=== PATIENT | female | born 1975 | race Hispanic/Latino ===

== ENCOUNTER 2020-05-31 00:04 | Inpatient (IN) | payer MEDICAID, OTHER ==
[2020-05-31 00:53] LABS: ABG BASE EXCESS -8.7 mmol/L (-2.0-3.0); ABG HCO3 12.3 mmol/L (21.0-28.0); ABG OXYGEN SATURATION 94.2 % (95.0-99.0); ABG PCO2 18 mmHg (32-45)
[2020-05-31 01:20] LABS: BASOPHILS % (AUTO) 0.2 % (0.0-5.0); EOSINOPHILS % (AUTO) 0.3 % (0.0-8.0); HEMATOCRIT 37.1 % (36-48); LYMPHOCYTES % (AUTO) 20.9 % (21.0-51.0); MEAN CORPUSCULAR HEMOGLOBIN 31.5 pg (27.0-33.0); MEAN CORPUSCULAR HGB CONC 33.2 g/dL (32.0-36.0); MEAN CORPUSCULAR VOLUME 95.1 fL (79-99); MONOCYTES % (AUTO) 11.2 % (3.0-13.0); NEUTROPHILS % (AUTO) 66.5 % (40.0-77.0); PLATELET COUNT (AUTO) 82 K/uL (130-400); RED CELL DISTRIBUTION WIDTH 13.5 % (11.0-15.5); WHITE BLOOD COUNT (AUTO) 5.9 K/uL (4.8-10.8)
[2020-05-31 01:33] LABS: INR 0.99 (0.85-1.15); PARTIAL THROMBOPLASTIN TIME 28.7 SEC (26.3-35.5); PROTHROMBIN TIME 10.7 SEC (9.6-11.6)
[2020-05-31 01:37] LABS: CREATININE 0.7 mg/dL (0.5-1.5); POTASSIUM 3.8 mmol/L (3.5-5.1)
[2020-05-31 01:41] LABS: ALBUMIN 2.6 g/dL (3.5-5.0); BILIRUBIN,TOTAL 0.9 mg/dL (0.2-1.0); TOTAL PROTEIN, SERUM 6.5 g/dL (6.0-8.3)
[2020-05-31] MEDS ORDERED: CEFTRIAXONE SODIUM 1 GM ONE (01:59)
[2020-05-31] MEDS: AZITHROMYCIN 500MG+NS 250ML 250 ML IV SCH (03:00)
[2020-05-31] MEDS: METHYLPREDNISOLONE SOD SUCC 40MG/ML 1ML IVP SCH ×3 (03:00→19:00)
[2020-05-31] MEDS: SODIUM CHLORIDE 0.9% 1000ML 1,000 ML IV SCH ×2 (03:04→16:24)
[2020-05-31] MEDS ORDERED: AZITHROMYCIN 500MG+NS 250ML 250 ML IV ONE (03:07)
[2020-05-31] MEDS ORDERED: ONDANSETRON HCL 4 MG/2 ML VIAL IV PRN (03:15)
[2020-05-31] MEDS ORDERED: NITROGLYCERIN 0.4 MG SL TAB SL PRN (03:15)
[2020-05-31] MEDS ORDERED: ALBUTEROL INHALER 90MCG/INH IH PRN (03:15)
[2020-05-31] MEDS ORDERED: DIPHENHYDRAMINE HCL 25 MG CAPSULE PO PRN (03:15)
[2020-05-31] MEDS ORDERED: ACETAMINOPHEN 325 MG TAB PO PRN ×2 (03:15)
[2020-05-31] MEDS ORDERED: SODIUM CHLORIDE 0.9% 1000ML 1,000 ML IV ONE (05:37)
[2020-05-31] MEDS ORDERED: METHYLPREDNISOLONE SOD SUCC 125MG/2ML VIAL ONE (05:38)
[2020-05-31 06:23] LABS: FIBRINOGEN 617 mg/dL (180-350)
[2020-05-31 06:38] LABS: CREATINE KINASE, TOTAL 42 U/L (21-232); LACTATE DEHYDROGENASE 460 U/L (81-234); MYOGLOBIN 36 ng/mL (10-92); TRIGLYCERIDES 87 mg/dL (30-200); TROPONIN I < 0.04 ng/mL (0.00-0.06)
[2020-05-31] MEDS: PANTOPRAZOLE SODIUM 40 MG TABLET.DR PO SCH (09:00)
[2020-05-31] MEDS ORDERED: ENOXAPARIN SODIUM 30 MG/0.3 ML SQ SCH (09:00)
[2020-05-31] MEDS ORDERED: ENOXAPARIN SODIUM 30 MG/0.3 ML SQ ONE (11:07)
[2020-05-31 12:47] LABS: APPEARANCE,URINE CLEAR (CLEAR)
[2020-05-31 12:48] LABS: COLOR,URINE YELLOW (YELLOW)
[2020-05-31 12:49] LABS: BILIRUBIN,URINE SMALL (NEGATIVE); GLUCOSE, URINE (UA) NEGATIVE (NEGATIVE); KETONES,URINE NEGATIVE (NEGATIVE); LEUKOCYTE ESTERASE ,URINE LARGE (NEGATIVE); NITRATE,URINE NEGATIVE (NEGATIVE); OCCULT BLOOD,URINE NEGATIVE (NEGATIVE); PROTEIN,URINE 30 mg/dL (NEGATIVE)
[2020-05-31 12:55] LABS: BACTERIA,URINE Moderate /HPF (None Seen); RBC,URINE 0-1 /HPF (0-1); SQUAMOUS EPITHELIAL CELL,UR Many /HPF (0-2)
[2020-05-31] MEDS ORDERED: METHYLPREDNISOLONE SOD SUCC 40MG/ML 1ML ONE ×2 (13:13→20:26)
--- NOTE | 2020-05-31 16:09 | NUR ---
CAYETANO TO REACH PATIENT BY PHONE, CALL TO FAMILY- BJ GOMEZ SPOUSE SONIA DOOLEY PATIENT IS ACTIVE, INDEPENDENT, EMPLOYED, HAS TWO MINOR CHILD AND EXTENDED FMAILY IN THE HOME. ALL HAVE SYMPTOMS AND COUGH BUT NON BAD AT THE PATIENT- UNINSURED. DRIVES, DCP HOME AT DISCHARGE., BJ TO SUPPLY TRANSPORT. STATES PATIENT NOT ANSWERING HER PHONE- MAYBE OUR OF CHARGE? ADIVSED HIM WHEN THUAN GOES UP TO FLOOR/ROOM, WILL HAVE A PHONE IN THE ROOM Addendum: 05/31/20 at 1612 by AMILCAR STEWART RN CM Amended: Links added.
[2020-06-01] MEDS ORDERED: CEFTRIAXONE SODIUM 1 GM ONE (02:27)
[2020-06-01] MEDS ORDERED: SODIUM CHLORIDE 0.9% 500ML 500 ML IV ONE (02:31)
[2020-06-01] MEDS: METHYLPREDNISOLONE SOD SUCC 40MG/ML 1ML IVP SCH ×3 (03:00→19:00)
[2020-06-01] MEDS: AZITHROMYCIN 500MG+NS 250ML 250 ML IV SCH (03:00)
[2020-06-01] MEDS ORDERED: METHYLPREDNISOLONE SOD SUCC 40MG/ML 1ML ONE ×2 (04:25→20:33)
[2020-06-01 04:58] LABS: HEMATOCRIT 37.5 % (36-48); MEAN CORPUSCULAR HEMOGLOBIN 32.1 pg (27.0-33.0); MEAN CORPUSCULAR HGB CONC 33.3 g/dL (32.0-36.0); MEAN CORPUSCULAR VOLUME 96.2 fL (79-99); PLATELET COUNT (AUTO) 79 K/uL (130-400); RED CELL DISTRIBUTION WIDTH 13.2 % (11.0-15.5); WHITE BLOOD COUNT (AUTO) 7.6 K/uL (4.8-10.8)
[2020-06-01 05:20] LABS: ALBUMIN 2.4 g/dL (3.5-5.0); BILIRUBIN,TOTAL 0.7 mg/dL (0.2-1.0); CREATININE 0.7 mg/dL (0.5-1.5); MAGNESIUM 2.1 mg/dL (1.80-2.40); POTASSIUM 4.1 mmol/L (3.5-5.1); TOTAL PROTEIN, SERUM 6.8 g/dL (6.0-8.3)
[2020-06-01 05:34] LABS: CRP QUANTITATIVE 254.5 mg/L (0.00-9.0)
[2020-06-01 05:35] LABS: LYMPHOCYTES % (MANUAL) 18 % (22-44); MAN.DIFF COMMENT-IMPRESSION MANUAL DIFFERENTIAL; MONOCYTES % (MANUAL) 5 % (2-9); PLATELET MORPHOLOGY COMMENT DECREASED; REACTIVE LYMPHOCYTES 5 % (0-0); SEGMENTED NEUTROPHILS % 72 % (40-70)
[2020-06-01] MEDS: SODIUM CHLORIDE 0.9% 1000ML 1,000 ML IV SCH ×2 (05:44→19:04)
[2020-06-01] MEDS: CEFTRIAXONE SODIUM 1 GM IVP SCH (09:00)
[2020-06-01] MEDS: PANTOPRAZOLE SODIUM 40 MG TABLET.DR PO SCH (09:00)
[2020-06-01] MEDS ORDERED: ACETAMINOPHEN 325 MG TAB ONE (10:51)
[2020-06-01] MEDS ORDERED: AZITHROMYCIN 500MG+NS 250ML 250 ML IV ONE (10:51)
[2020-06-02] MEDS: AZITHROMYCIN 500MG+NS 250ML 250 ML IV SCH (03:00)
[2020-06-02] MEDS ORDERED: CEFTRIAXONE SODIUM 1 GM ONE (06:19)
[2020-06-02] MEDS ORDERED: METHYLPREDNISOLONE SOD SUCC 40MG/ML 1ML ONE ×2 (06:19→10:08)
[2020-06-02 06:40] LABS: BASOPHILS % (AUTO) 0.1 % (0.0-5.0); EOSINOPHILS % (AUTO) 1.5 % (0.0-8.0); HEMATOCRIT 35.2 % (36-48); LYMPHOCYTES % (AUTO) 17.6 % (21.0-51.0); MEAN CORPUSCULAR HEMOGLOBIN 32.2 pg (27.0-33.0); MEAN CORPUSCULAR HGB CONC 33.5 g/dL (32.0-36.0); MEAN CORPUSCULAR VOLUME 95.9 fL (79-99); MONOCYTES % (AUTO) 6.5 % (3.0-13.0); NEUTROPHILS % (AUTO) 73.8 % (40.0-77.0); PLATELET COUNT (AUTO) 109 K/uL (130-400); RED BLOOD CELL COUNT(AUTO) 3.67 MIL/uL (4.00-5.50); RED CELL DISTRIBUTION WIDTH 13.3 % (11.0-15.5); WHITE BLOOD COUNT (AUTO) 8.1 K/uL (4.8-10.8)
[2020-06-02 07:00] LABS: CREATININE 0.5 mg/dL (0.5-1.5); CRP QUANTITATIVE 96.9 mg/L (0.00-9.0); POTASSIUM 4.6 mmol/L (3.5-5.1)
--- NOTE | 2020-06-02 07:20 | NUR ---
BEDSIDE REPORT GIVEN TO JOVAN MCKNIGHT; VSS; NO S/S DISTRESS NOTED; RELINQUISHED PT CARE AT THIS TIME
[2020-06-02] MEDS: SODIUM CHLORIDE 0.9% 1000ML 1,000 ML IV SCH ×2 (08:24→17:13)
[2020-06-02] MEDS: PANTOPRAZOLE SODIUM 40 MG TABLET.DR PO SCH (09:00)
[2020-06-02] MEDS: CEFTRIAXONE SODIUM 1 GM IVP SCH (09:00)
[2020-06-02] MEDS ORDERED: PANTOPRAZOLE SODIUM 40 MG TABLET.DR ONE (10:08)
[2020-06-02] MEDS: METHYLPREDNISOLONE SOD SUCC 40MG/ML 1ML IVP SCH ×2 (11:00→17:13)
[2020-06-02] MEDS ORDERED: MEROPENEM 1 GM VIAL ONE (16:35)
[2020-06-02 16:48] VITALS: BP 126/55
[2020-06-02] MEDS: MEROPENEM 1 GM VIAL IVP SCH (17:13)
[2020-06-02 20:00] VITALS: BP 138/75
[2020-06-02 23:24] VITALS: BP 127/70
[2020-06-03] MEDS: MEROPENEM 1 GM VIAL IVP SCH ×3 (01:22→19:34)
[2020-06-03] MEDS: METHYLPREDNISOLONE SOD SUCC 40MG/ML 1ML IVP SCH ×3 (03:13→19:34)
[2020-06-03] MEDS: AZITHROMYCIN 500MG+NS 250ML 250 ML IV SCH ×2 (03:13→19:34)
[2020-06-03 04:15] VITALS: BP 144/78
--- NOTE | 2020-06-03 07:16 | NUR ---
BEDSIDE REPORT GIVEN TO JOVAN BILLY; VSS; NO S/S DISTRESS NOTED; PT RESTING COMFORTABLE IN BED; RELINQUISHED PT CARE AT THIS TIME
[2020-06-03 07:35] LABS: BASOPHILS % (AUTO) 0.2 % (0.0-5.0); HEMATOCRIT 32.7 % (36-48); LYMPHOCYTES % (AUTO) 20.7 % (21.0-51.0); MEAN CORPUSCULAR HEMOGLOBIN 31.5 pg (27.0-33.0); MEAN CORPUSCULAR HGB CONC 32.7 g/dL (32.0-36.0); MEAN CORPUSCULAR VOLUME 96.2 fL (79-99); MONOCYTES % (AUTO) 11.6 % (3.0-13.0); NEUTROPHILS % (AUTO) 66.7 % (40.0-77.0); PLATELET COUNT (AUTO) 83 K/uL (130-400); RED CELL DISTRIBUTION WIDTH 13.4 % (11.0-15.5); WHITE BLOOD COUNT (AUTO) 5.3 K/uL (4.8-10.8)
[2020-06-03 07:50] LABS: ALBUMIN 2.4 g/dL (3.5-5.0); BILIRUBIN,TOTAL 0.6 mg/dL (0.2-1.0); CREATININE 0.6 mg/dL (0.5-1.5); CRP QUANTITATIVE 47.4 mg/L (0.00-9.0); POTASSIUM 4.2 mmol/L (3.5-5.1)
[2020-06-03 08:00] VITALS: BP 112/73
--- NOTE | 2020-06-03 08:15 | NUR ---
AM ASSESSMENT PT LAYING IN BED, WATCHING TV. A/O X 3. NO SOB. NO DISTRESS NOTED. O2 NC @ 3L. DENIES CHEST PAIN OR DISCOMFORT. DENIES PALPITATIONS. TELE: SR. DENIES N/V AND/OR DIARRHEA. 0.9% NACL INFUSING @ 75 ML/HR. UP AD JESSENIA. INSTRUCTED TO CALL FOR ASSISTANCE. CALL RON W/IN REACH.
[2020-06-03] MEDS: PANTOPRAZOLE SODIUM 40 MG TABLET.DR PO SCH (09:17)
[2020-06-03 12:00] VITALS: BP 131/73
[2020-06-03 16:00] VITALS: BP 119/71
[2020-06-03 19:25] VITALS: BP 133/69
--- NOTE | 2020-06-03 23:00 | NUR ---
NEW IV STARTED. 22G RIGHT FA. PT STATES SHE FEELS MUCH BETTER. DOES EXPERIENCE SOB. ABLE TO AMBULATE TO THE RR. PT IS POSSIBLE DC FOR THE AM.
[2020-06-03 23:23] VITALS: BP 133/80
[2020-06-04 03:20] VITALS: BP 119/59
[2020-06-04] MEDS: MEROPENEM 1 GM VIAL IVP SCH ×2 (05:33→22:53)
[2020-06-04] MEDS: METHYLPREDNISOLONE SOD SUCC 40MG/ML 1ML IVP SCH (06:00)
[2020-06-04 08:06] LABS: BASOPHILS % (AUTO) 0.2 % (0.0-5.0); HEMATOCRIT 34.4 % (36-48); LYMPHOCYTES % (AUTO) 26.1 % (21.0-51.0); MEAN CORPUSCULAR HEMOGLOBIN 31.7 pg (27.0-33.0); MEAN CORPUSCULAR HGB CONC 32.8 g/dL (32.0-36.0); MEAN CORPUSCULAR VOLUME 96.6 fL (79-99); MONOCYTES % (AUTO) 12.7 % (3.0-13.0); NEUTROPHILS % (AUTO) 60.2 % (40.0-77.0); PLATELET COUNT (AUTO) 87 K/uL (130-400); RED BLOOD CELL COUNT(AUTO) 3.56 MIL/uL (4.00-5.50); RED CELL DISTRIBUTION WIDTH 13.2 % (11.0-15.5)
[2020-06-04] MEDS: PANTOPRAZOLE SODIUM 40 MG TABLET.DR PO SCH (08:11)
[2020-06-04 08:38] LABS: ALBUMIN 2.7 g/dL (3.5-5.0); BILIRUBIN,TOTAL 0.7 mg/dL (0.2-1.0); CREATININE 0.8 mg/dL (0.5-1.5); CRP QUANTITATIVE 28.4 mg/L (0.00-9.0); TOTAL PROTEIN, SERUM 6.4 g/dL (6.0-8.3)
[2020-06-04 09:28] VITALS: BP 123/69
[2020-06-04] MEDS ORDERED: ENOXAPARIN SODIUM 40 MG/0.4 ML SYRINGE SQ SCH (10:06)
[2020-06-04 12:26] VITALS: BP 127/75
[2020-06-04 17:18] VITALS: BP 166/84
[2020-06-04 19:00] VITALS: BP 119/79
--- NOTE | 2020-06-04 20:18 | NUR ---
PAGED SARAH CLARIFIED IF OK TO ADMINISTER LOVENOX WITH PLT @ [facility], SAID "OK". 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 SARAH SAID IT'S STILL OK TO ADMINISTER.
[2020-06-04] MEDS: AZITHROMYCIN 500MG+NS 250ML 250 ML IV SCH (20:44)
[2020-06-04] MEDS: ENOXAPARIN SODIUM 40 MG/0.4 ML SYRINGE SQ SCH (20:45)
[2020-06-04] MEDS ORDERED: METHYLPREDNISOLONE SOD SUCC 40MG/ML 1ML IVP SCH (21:00)
[2020-06-04 23:57] VITALS: BP 124/73
[2020-06-05 04:00] VITALS: BP 115/65
[2020-06-05] MEDS: MEROPENEM 1 GM VIAL IVP SCH ×3 (05:21→22:13)
[2020-06-05 08:09] LABS: BASOPHILS % (AUTO) 0.2 % (0.0-5.0); EOSINOPHILS % (AUTO) 0.5 % (0.0-8.0); HEMATOCRIT 34.2 % (36-48); LYMPHOCYTES % (AUTO) 41.2 % (21.0-51.0); MEAN CORPUSCULAR HEMOGLOBIN 31.2 pg (27.0-33.0); MEAN CORPUSCULAR VOLUME 94.5 fL (79-99); MONOCYTES % (AUTO) 12.4 % (3.0-13.0); NEUTROPHILS % (AUTO) 43.9 % (40.0-77.0); PLATELET COUNT (AUTO) 83 K/uL (130-400); RED BLOOD CELL COUNT(AUTO) 3.62 MIL/uL (4.00-5.50); RED CELL DISTRIBUTION WIDTH 13.2 % (11.0-15.5); WHITE BLOOD COUNT (AUTO) 5.6 K/uL (4.8-10.8)
[2020-06-05 09:27] LABS: ALBUMIN 2.7 g/dL (3.5-5.0); BILIRUBIN,TOTAL 0.8 mg/dL (0.2-1.0); CREATININE 0.7 mg/dL (0.5-1.5); CRP QUANTITATIVE 17.8 mg/L (0.00-9.0); POTASSIUM 3.9 mmol/L (3.5-5.1)
[2020-06-05 10:06] VITALS: BP 116/70
[2020-06-05] MEDS: PANTOPRAZOLE SODIUM 40 MG TABLET.DR PO SCH (10:16)
[2020-06-05] MEDS: DEXAMETHASONE 4 MG TAB PO SCH (10:16)
[2020-06-05] MEDS: ENOXAPARIN SODIUM 40 MG/0.4 ML SYRINGE SQ SCH (10:17)
[2020-06-05 13:55] VITALS: BP 3/50
--- NOTE | 2020-06-05 14:00 | NUR ---
PM ASSESSMENT PT AWAKE, ALERT, AND ORIENTED. DENIES CHEST PAIN, NO SOB OR LABORED RESPIRATIONS, PT ON ROOM AIR. PT STATES HAVING INCREASED MILD TO MOD VAGINAL BLEED, STATES NOT SURE IF IT IS FROM POSSIBLE MENSES, STATES NOT HAVING MENSES IN A LONG TIME. MD TO BE MADE AWARE.
--- NOTE | 2020-06-05 14:10 | NUR ---
DR SWAPNA BARCENAS MADE AWARE OF PT STATING HAVING VAGINAL BLEEDING AND IS NOT SURE IF IT IS MENSES, ORDER RECEIVED FOR PELVIC US.
--- NOTE | 2020-06-05 15:00 | NUR ---
PELVIC US DR BARCENAS MADE AWARE PER RADIOLOGIST US WILL NOT BE DONE UNTIL PT IS COVID NEGATIVE
[2020-06-05 16:00] VITALS: BP 135/70
[2020-06-05 20:00] VITALS: BP 114/74
[2020-06-05] MEDS: AZITHROMYCIN 500MG+NS 250ML 250 ML IV SCH (22:13)
[2020-06-06 00:17] VITALS: BP 131/77
[2020-06-06 03:19] VITALS: BP 116/64
--- NOTE | 2020-06-06 04:31 | NUR ---
Assessment Patient is in the bed resting peacefully. She is not showing any S/S of distress. Vitals are stable and she is being closely monitored.
[2020-06-06] MEDS: MEROPENEM 1 GM VIAL IVP SCH ×2 (06:13→14:21)
[2020-06-06 07:30] VITALS: BP 135/75
[2020-06-06] MEDS: PANTOPRAZOLE SODIUM 40 MG TABLET.DR PO SCH (10:03)
[2020-06-06] MEDS: DEXAMETHASONE 4 MG TAB PO SCH (10:03)
[2020-06-06] MEDS: ENOXAPARIN SODIUM 40 MG/0.4 ML SYRINGE SQ SCH ×2 (10:03→17:17)
[2020-06-06 11:00] VITALS: BP 120/66
[2020-06-06 16:00] VITALS: BP 133/78
[2020-06-06] MEDS ORDERED: NITR50CA PO (16:55)
[2020-06-06] MEDS ORDERED: DEXA6TAB PO (16:55)
[2020-06-06] MEDS ORDERED: APIX2.5T PO (16:55)
== END 2020-06-06 19:34 | disposition home or self-care (01) | DRG 177 ==
LOC: EDBD 00:04 → EDH 00:04 → EDHIP 00:05 → 4CH 06-02 17:18
PROVIDERS: ADMIT Internal Medicine; ATTEND Internal Medicine
DX: U07.1 COVID-19 (principal); A41.89 Other specified sepsis; J12.89 Other viral pneumonia; J96.01 Acute respiratory failure with hypoxia; R65.20 Severe sepsis without septic shock; E87.3 Alkalosis; N39.0 Urinary tract infection, site not specified; Z16.12 Extended spectrum beta lactamase (ESBL) resistance; Z16.24 Resistance to multiple antibiotics; B96.20 Unspecified Escherichia coli [E. coli] as the cause of diseases classified elsewhere; D69.6 Thrombocytopenia, unspecified; E66.01 Morbid (severe) obesity due to excess calories
CPT/HCPCS: 0099U; 36415; 36600; 71045; 80048; 80053; 81001; 82550; 82728; 82803; 82948; 83036; 83605; 83615; 83735; 83874; 84145; 84478; 84484; 85025; 85378; 85384; 85610; 85730; 86140; 87040; 87077; 87088; 87186; 87486; 87581; 87633; 87798; 87804; 93005; G0378; J0456; J0696; J1650; J2185; J2920; J2930; J7030; J7040; J8540; Q0163; U0003

== ENCOUNTER 2024-05-13 20:51 | Inpatient (IN) | payer MEDICAID, OTHER ==
[~2024-05-13] VITALS: Ht 157.5 cm; Wt 133.7 kg
[~2024-05-13 20:51] MED LIST: APIX2.5T PO; DEXA6TAB PO; NITR50CA PO
[2024-05-13] MEDS: ACETAMINOPHEN 500 MG TABLET PO ONE (21:07)
[2024-05-13 21:12] LABS: BASOPHILS # (AUTO) 0.01 K/uL (0.00-0.20); BASOPHILS % (AUTO) 0.1 % (0.0-5.0); EOSINOPHILS # (AUTO) 0.02 K/uL (0.00-0.70); EOSINOPHILS % (AUTO) 0.3 % (0.0-8.0); HEMATOCRIT 33.4 % (36-48); IMMATURE GRANULOCYTE ABSOLUTE 0.03 K/uL (0-1); LYMPHOCYTES # (AUTO) 1.2 K/uL (1.0-4.8); LYMPHOCYTES % (AUTO) 17.9 % (21.0-51.0); MEAN CORPUSCULAR HEMOGLOBIN 33.7 pg (27.0-33.0); MEAN CORPUSCULAR HGB CONC 33.5 g/dL (32.0-36.0); MEAN CORPUSCULAR VOLUME 100.6 fL (79-99); MONOCYTES # (AUTO) 0.5 K/uL (0.1-1.0); MONOCYTES % (AUTO) 6.9 % (3.0-13.0); NEUTROPHILS # (AUTO) 5.1 K/uL (1.8-7.7); NEUTROPHILS % (AUTO) 74.4 % (40.0-77.0); PLATELET COUNT (AUTO) 33 K/uL (130-400); RED BLOOD CELL COUNT(AUTO) 3.32 MIL/uL (4.00-5.50); RED CELL DISTRIBUTION WIDTH 14.4 % (11.0-15.5); WHITE BLOOD COUNT (AUTO) 6.9 K/uL (4.8-10.8)
[2024-05-13 21:23] LABS: CREATININE 0.7 mg/dL (0.5-1.0); POTASSIUM 4.2 mmol/L (3.5-5.1)
[2024-05-13] MEDS: ACETAMINOPHEN 500 MG TABLET ONE (21:36)
[2024-05-13 22:19] LABS: APPEARANCE,URINE CLEAR (CLEAR); BILIRUBIN,URINE NEGATIVE (NEGATIVE); COLOR,URINE YELLOW (YELLOW); GLUCOSE, URINE (UA) NEGATIVE (NEGATIVE); KETONES,URINE NEGATIVE (NEGATIVE); LEUKOCYTE ESTERASE ,URINE NEGATIVE Leu/uL (NEGATIVE); NITRATE,URINE NEGATIVE (NEGATIVE); PH,URINE 7.5 (5.0-8.0); PROTEIN,URINE NEGATIVE (NEGATIVE); UROBILINOGEN,URINE 3 mg/dL (0.2-1.0)
[2024-05-13 22:20] LABS: ADD UA MICROSCOPIC YES
[2024-05-13 22:22] LABS: BACTERIA,URINE RARE /HPF (None Seen); MUCUS,URINE RARE LPF (None Seen); SQUAMOUS EPITHELIAL CELL,UR RARE /HPF (0-2); WBC,URINE 0-1 /HPF (0-1)
[2024-05-13] MEDS ORDERED: IOHEXOL 350 MG/ML 100ML INFUS..BTL IV ONE (23:41)
[2024-05-14] VITALS (70 sets, daily range): BP systolic 93–169; BP diastolic 42–125; PULSE 73–100; RESP 11–45; TEMP 100.2; O2SAT 99–100
[2024-05-14] MEDS: 0.9%NACL 1000ML 1,000 ML IV SCH (05:20)
[2024-05-14 06:09] LABS: BASOPHILS # (AUTO) 0.01 K/uL (0.00-0.20); BASOPHILS % (AUTO) 0.2 % (0.0-5.0); EOSINOPHILS # (AUTO) 0.04 K/uL (0.00-0.70); EOSINOPHILS % (AUTO) 0.7 % (0.0-8.0); HEMATOCRIT 32.7 % (36-48); IMMATURE GRANULOCYTE ABSOLUTE 0.02 K/uL (0-1); LYMPHOCYTES # (AUTO) 1.3 K/uL (1.0-4.8); LYMPHOCYTES % (AUTO) 23.5 % (21.0-51.0); MEAN CORPUSCULAR HEMOGLOBIN 33.6 pg (27.0-33.0); MEAN CORPUSCULAR VOLUME 101.9 fL (79-99); MONOCYTES # (AUTO) 0.5 K/uL (0.1-1.0); MONOCYTES % (AUTO) 8.8 % (3.0-13.0); NEUTROPHILS # (AUTO) 3.8 K/uL (1.8-7.7); NEUTROPHILS % (AUTO) 66.4 % (40.0-77.0); PLATELET COUNT (AUTO) 30 K/uL (130-400); RED BLOOD CELL COUNT(AUTO) 3.21 MIL/uL (4.00-5.50); RED CELL DISTRIBUTION WIDTH 14.6 % (11.0-15.5); WHITE BLOOD COUNT (AUTO) 5.7 K/uL (4.8-10.8)
[2024-05-14 07:52] LABS: ALBUMIN 2.7 g/dL (3.5-5.0); BILIRUBIN,TOTAL 2.9 mg/dL (0.2-1.0); CREATININE 0.6 mg/dL (0.5-1.0); MAGNESIUM 1.7 mg/dL (1.80-2.40); POTASSIUM 4.1 mmol/L (3.5-5.1); TOTAL PROTEIN, SERUM 6.3 g/dL (6.0-8.3)
[2024-05-14] MEDS ORDERED: UNASYN 1.5GM+NS 100ML IV SCH (09:00)
[2024-05-14] MEDS: FAMOTIDINE 20MG VIAL IV SCH (09:55)
[2024-05-14] MEDS: AMP/SULBAC 1.5GM+NS 100ML 100 ML IV SCH (10:06)
[2024-05-14 10:30] LABS: MONOTEST NEGATIVE (NEGATIVE)
[2024-05-14] MEDS ORDERED: COMPOUND IV MISC 1 EACH IVSOLN MISC PRN (10:30)
[2024-05-14] MEDS ORDERED: MEROPENEM 1 GM in 0.9%NACL 100ML 100 ML IVPB SCH (11:00)
[2024-05-14] MEDS ORDERED: VANCOMYCIN PROTOCOL PER PHARMACY IV SCH (11:00)
[2024-05-14] MEDS: MEROPENEM 1 GM in 0.9%NACL 100ML IVPB SCH (11:29)
[2024-05-14 13:02] LABS: HIV 1&2 ANTIBODY Non-Reactive (Negative); HIV-1 p24 Antigen Non-Reactive (Negative)
[2024-05-14] MEDS: VANCOMYCIN 1.5 GM/250 ML BAG IV SCH (14:26)
[2024-05-14] MEDS: ACETAMINOPHEN 325 MG TAB PO PRN (15:08)
[2024-05-14] MEDS: KETOROLAC 15MG/ML VIAL (15MG/ML) IV PRN (15:58)
[2024-05-15] VITALS (30 sets, daily range): BP systolic 96–133; BP diastolic 43–76; PULSE 75–95; RESP 14–39; O2SAT 97–100
[2024-05-15 05:21] LABS: BASOPHILS # (AUTO) 0.01 K/uL (0.00-0.20); BASOPHILS % (AUTO) 0.2 % (0.0-5.0); EOSINOPHILS # (AUTO) 0.03 K/uL (0.00-0.70); EOSINOPHILS % (AUTO) 0.6 % (0.0-8.0); HEMATOCRIT 28.1 % (36-48); IMMATURE GRANULOCYTE ABSOLUTE 0.02 K/uL (0-1); LYMPHOCYTES # (AUTO) 1.2 K/uL (1.0-4.8); LYMPHOCYTES % (AUTO) 22.8 % (21.0-51.0); MEAN CORPUSCULAR HEMOGLOBIN 33.8 pg (27.0-33.0); MEAN CORPUSCULAR HGB CONC 33.5 g/dL (32.0-36.0); MEAN CORPUSCULAR VOLUME 101.1 fL (79-99); MONOCYTES # (AUTO) 0.5 K/uL (0.1-1.0); MONOCYTES % (AUTO) 9.6 % (3.0-13.0); NEUTROPHILS # (AUTO) 3.4 K/uL (1.8-7.7); NEUTROPHILS % (AUTO) 66.4 % (40.0-77.0); PLATELET COUNT (AUTO) 27 K/uL (130-400); RED BLOOD CELL COUNT(AUTO) 2.78 MIL/uL (4.00-5.50); RED CELL DISTRIBUTION WIDTH 14.5 % (11.0-15.5); WHITE BLOOD COUNT (AUTO) 5.1 K/uL (4.8-10.8)
[2024-05-15 05:43] LABS: ALBUMIN 2.4 g/dL (3.5-5.0); BILIRUBIN,TOTAL 3.7 mg/dL (0.2-1.0); CREATININE 0.6 mg/dL (0.5-1.0); MAGNESIUM 1.8 mg/dL (1.80-2.40); PHOSPHORUS 2.4 mg/dL (2.5-4.9); POTASSIUM 3.7 mmol/L (3.5-5.1); TOTAL PROTEIN, SERUM 5.5 g/dL (6.0-8.3)
[2024-05-15] MEDS: MAGNESIUM 2GM PREMIX 50ML 50 ML IV SCH (06:35)
[2024-05-15] MEDS: LACTULOSE 20 GM/30 ML UDCUP PO SCH (08:28)
[2024-05-15] MEDS: SPIRONOLACTONE 25 MG TAB PO SCH (09:36)
[2024-05-15] MEDS: MULTIVITAMIN WITH MINERALS TABLET PO SCH (09:36)
[2024-05-15] MEDS: FUROSEMIDE 20 MG TABLET PO SCH (09:39)
[2024-05-15] MEDS: ONDANSETRON 4MG INJ IV PRN (15:07)
[2024-05-16] VITALS (8 sets, daily range): BP systolic 103–127; BP diastolic 50–72; PULSE 73–98; RESP 18–20; O2SAT 100
[2024-05-16 06:15] LABS: BASOPHILS # (AUTO) 0.01 K/uL (0.00-0.20); BASOPHILS % (AUTO) 0.3 % (0.0-5.0); EOSINOPHILS # (AUTO) 0.06 K/uL (0.00-0.70); EOSINOPHILS % (AUTO) 1.5 % (0.0-8.0); HEMATOCRIT 31.6 % (36-48); IMMATURE GRANULOCYTE ABSOLUTE 0.02 K/uL (0-1); LYMPHOCYTES % (AUTO) 26.8 % (21.0-51.0); MEAN CORPUSCULAR HEMOGLOBIN 33.9 pg (27.0-33.0); MEAN CORPUSCULAR HGB CONC 32.6 g/dL (32.0-36.0); MEAN CORPUSCULAR VOLUME 103.9 fL (79-99); MONOCYTES # (AUTO) 0.5 K/uL (0.1-1.0); MONOCYTES % (AUTO) 11.9 % (3.0-13.0); NEUTROPHILS # (AUTO) 2.3 K/uL (1.8-7.7); PLATELET COUNT (AUTO) 36 K/uL (130-400); RED BLOOD CELL COUNT(AUTO) 3.04 MIL/uL (4.00-5.50); RED CELL DISTRIBUTION WIDTH 14.3 % (11.0-15.5); WHITE BLOOD COUNT (AUTO) 3.9 K/uL (4.8-10.8)
[2024-05-16 06:56] LABS: ALBUMIN 2.8 g/dL (3.5-5.0); BILIRUBIN,TOTAL 3.1 mg/dL (0.2-1.0); CREATININE 0.6 mg/dL (0.5-1.0); POTASSIUM 3.6 mmol/L (3.5-5.1); TOTAL PROTEIN, SERUM 6.3 g/dL (6.0-8.3)
[2024-05-17] VITALS (7 sets, daily range): BP systolic 103–123; BP diastolic 53–78; PULSE 79–89; RESP 16–18; O2SAT 99
[2024-05-17 03:45] LABS: BASOPHILS # (AUTO) 0.01 K/uL (0.00-0.20); BASOPHILS % (AUTO) 0.4 % (0.0-5.0); EOSINOPHILS # (AUTO) 0.05 K/uL (0.00-0.70); EOSINOPHILS % (AUTO) 1.9 % (0.0-8.0); HEMATOCRIT 26.2 % (36-48); IMMATURE GRANULOCYTE ABSOLUTE 0.01 K/uL (0-1); LYMPHOCYTES % (AUTO) 39.2 % (21.0-51.0); MEAN CORPUSCULAR HGB CONC 32.8 g/dL (32.0-36.0); MEAN CORPUSCULAR VOLUME 100.4 fL (79-99); MONOCYTES # (AUTO) 0.3 K/uL (0.1-1.0); MONOCYTES % (AUTO) 13.1 % (3.0-13.0); NEUTROPHILS # (AUTO) 1.2 K/uL (1.8-7.7); PLATELET COUNT (AUTO) 31 K/uL (130-400); RED BLOOD CELL COUNT(AUTO) 2.61 MIL/uL (4.00-5.50); RED CELL DISTRIBUTION WIDTH 13.8 % (11.0-15.5); WHITE BLOOD COUNT (AUTO) 2.6 K/uL (4.8-10.8)
[2024-05-17 04:08] LABS: ALBUMIN 2.3 g/dL (3.5-5.0); CREATININE 0.5 mg/dL (0.5-1.0); POTASSIUM 3.5 mmol/L (3.5-5.1); TOTAL PROTEIN, SERUM 5.4 g/dL (6.0-8.3)
[2024-05-17 05:34] LABS: EOSINOPHILS % (MANUAL) 1 % (1-6); LYMPHOCYTES % (MANUAL) 45 % (22-44); MONOCYTES % (MANUAL) 1 % (2-9); SEGMENTED NEUTROPHILS % 53 % (40-70); TOTAL CELLS COUNTED 100
[2024-05-17 05:35] LABS: MAN.DIFF COMMENT-IMPRESSION MANUAL DIFFERENTIAL; PLATELET MORPHOLOGY COMMENT MARKED DECREASE; WBC MORPHOLOGY NORMAL
[2024-05-18] VITALS (7 sets, daily range): BP systolic 113–132; BP diastolic 56–67; PULSE 69–90; RESP 17–20; O2SAT 94–99
[2024-05-18 03:41] LABS: HEMATOCRIT 26.3 % (36-48); MEAN CORPUSCULAR HEMOGLOBIN 33.8 pg (27.0-33.0); MEAN CORPUSCULAR HGB CONC 33.5 g/dL (32.0-36.0); MEAN CORPUSCULAR VOLUME 101.2 fL (79-99); RED BLOOD CELL COUNT(AUTO) 2.6 MIL/uL (4.00-5.50); RED CELL DISTRIBUTION WIDTH 13.9 % (11.0-15.5); WHITE BLOOD COUNT (AUTO) 2.4 K/uL (4.8-10.8)
[2024-05-18 04:09] LABS: ALBUMIN 2.4 g/dL (3.5-5.0); BILIRUBIN,TOTAL 1.6 mg/dL (0.2-1.0); CREATININE 0.7 mg/dL (0.5-1.0); MAGNESIUM 1.8 mg/dL (1.80-2.40); POTASSIUM 3.6 mmol/L (3.5-5.1); TOTAL PROTEIN, SERUM 5.5 g/dL (6.0-8.3)
[2024-05-19] VITALS (9 sets, daily range): BP systolic 108–120; BP diastolic 59–71; PULSE 78–88; RESP 17–24; O2SAT 97–98
[2024-05-19 04:13] LABS: HEMATOCRIT 27.7 % (36-48); MEAN CORPUSCULAR HEMOGLOBIN 33.7 pg (27.0-33.0); MEAN CORPUSCULAR HGB CONC 33.2 g/dL (32.0-36.0); MEAN CORPUSCULAR VOLUME 101.5 fL (79-99); PLATELET COUNT (AUTO) 37 K/uL (130-400); RED BLOOD CELL COUNT(AUTO) 2.73 MIL/uL (4.00-5.50); RED CELL DISTRIBUTION WIDTH 14.2 % (11.0-15.5); WHITE BLOOD COUNT (AUTO) 2.1 K/uL (4.8-10.8)
[2024-05-19 04:34] LABS: ALBUMIN 2.4 g/dL (3.5-5.0); BILIRUBIN,TOTAL 1.3 mg/dL (0.2-1.0); CREATININE 0.5 mg/dL (0.5-1.0); POTASSIUM 3.6 mmol/L (3.5-5.1); TOTAL PROTEIN, SERUM 5.5 g/dL (6.0-8.3)
[2024-05-19 05:53] LABS: BASOPHILS % (MANUAL) 2 % (0-2); EOSINOPHILS % (MANUAL) 3 % (1-6); LYMPHOCYTES % (MANUAL) 42 % (22-44); MAN.DIFF COMMENT-IMPRESSION MANUAL DIFFERENTIAL; MONOCYTES % (MANUAL) 13 % (2-9); SEGMENTED NEUTROPHILS % 40 % (40-70); TOTAL CELLS COUNTED 100
[2024-05-19 05:54] LABS: PLATELET MORPHOLOGY COMMENT MARKED DECREASE
[2024-05-19] MEDS ORDERED: POTASSIUM CHLORIDE 20MEQ/100ML 100 ML IV PRN (09:00)
[2024-05-19] MEDS ORDERED: POTASSIUM CHLORIDE 10% ELIXIR 20 MEQ/15 ML UDCUP PO PRN (09:00)
[2024-05-19] MEDS: KCL 20 MEQ ERTAB PO PRN (11:39)
[2024-05-19] MEDS ORDERED: IBUPROFEN 200 MG TAB PO PRN (16:15)
[2024-05-19] MEDS ORDERED: IBUPROFEN 400 MG TABLET PO PRN (16:30)
[2024-05-20] VITALS (8 sets, daily range): BP systolic 97–126; BP diastolic 55–70; PULSE 73–85; RESP 17–18; O2SAT 96–98
[2024-05-20 05:34] LABS: HEMATOCRIT 28.2 % (36-48); MEAN CORPUSCULAR HEMOGLOBIN 33.3 pg (27.0-33.0); MEAN CORPUSCULAR HGB CONC 32.6 g/dL (32.0-36.0); MEAN CORPUSCULAR VOLUME 102.2 fL (79-99); RED BLOOD CELL COUNT(AUTO) 2.76 MIL/uL (4.00-5.50); RED CELL DISTRIBUTION WIDTH 14.3 % (11.0-15.5); WHITE BLOOD COUNT (AUTO) 1.9 K/uL (4.8-10.8)
[2024-05-20 05:59] LABS: ALBUMIN 2.4 g/dL (3.5-5.0); BILIRUBIN,TOTAL 1.4 mg/dL (0.2-1.0); CREATININE 0.5 mg/dL (0.5-1.0); MAGNESIUM 1.6 mg/dL (1.80-2.40); POTASSIUM 3.9 mmol/L (3.5-5.1); TOTAL PROTEIN, SERUM 5.8 g/dL (6.0-8.3)
[2024-05-20] MEDS ORDERED: MAGNESIUM 2GM PREMIX 50ML 50 ML IV SCH (12:00)
[2024-05-21 01:00] VITALS: BP 126/55; PULSE 85; RESP 18
[2024-05-21 04:06] VITALS: BP 99/49; PULSE 79; RESP 18
[2024-05-21 08:00] VITALS: BP 110/60; PULSE 78; RESP 17
[2024-05-21] MEDS: LEVOFLOXACIN 750 MG TABLET PO SCH (09:51)
[2024-05-21 12:00] VITALS: BP 113/70; PULSE 75; RESP 17
[2024-05-21] MEDS ORDERED: AMOX1TAB16 PO (14:23)
[2024-05-21] MEDS ORDERED: SPIR25TA6 PO (14:24)
[2024-05-21] MEDS ORDERED: FURO20TA6 PO (14:24)
[2024-05-21 16:04] VITALS: BP 105/53; PULSE 76; RESP 20
[2024-05-21] MEDS ORDERED: LEVO750T68 PO (17:05)
== END 2024-05-21 18:30 | disposition home or self-care (01) | DRG 872 ==
LOC: EDH 20:51 → EDHIP 20:52 → 2CH 05-14 04:16 → 2DH 05-15 22:25 → 3AH 05-19 17:35
PROVIDERS: ADMIT Internal Medicine; ATTEND Internal Medicine
DX: A41.51 Sepsis due to Escherichia coli [E. coli] (principal); E87.1 Hypo-osmolality and hyponatremia; N39.0 Urinary tract infection, site not specified; Z16.12 Extended spectrum beta lactamase (ESBL) resistance; K81.0 Acute cholecystitis; K76.6 Portal hypertension; L03.116 Cellulitis of left lower limb; Z68.43 Body mass index [BMI] 50.0-59.9, adult; E66.01 Morbid (severe) obesity due to excess calories; D69.6 Thrombocytopenia, unspecified; K74.60 Unspecified cirrhosis of liver; R16.1 Splenomegaly, not elsewhere classified; D64.9 Anemia, unspecified; R73.9 Hyperglycemia, unspecified; R65.20 Severe sepsis without septic shock; B96.89 Other specified bacterial agents as the cause of diseases classified elsewhere; I89.0 Lymphedema, not elsewhere classified; Z86.16 Personal history of COVID-19; Z79.899 Other long term (current) drug therapy
CPT/HCPCS: 36415; 71045; 74178; 76700; 76705; 76882; 80048; 80053; 80076; 80202; 81001; 81025; 82140; 82550; 83605; 83615; 83735; 84100; 84145; 84484; 85025; 85027; 86308; 86701; 86777; 86778; 87040; 87077; 87088; 87186; 87253; 87390; 93005; 93970; 93975; 99291; C1894; G0378; J0295; J1885; J2185; J2405; J3475; J3490; Q9967; J3370